=== PATIENT | female | born 1980 | race African-American/Black ===

== ENCOUNTER 2019-01-28 00:03 | Inpatient (IN) | payer BC, MEDICAID ==
[2019-01-28] VITALS (59 sets, daily range): BP systolic 93–162; BP diastolic 26–134
[~2019-01-28] VITALS: Ht 172.7 cm; Wt 71.3 kg
[2019-01-28] MEDS ORDERED: SODIUM CHLORIDE 0.9% 1,000 ML IV ONE (00:29)
[2019-01-28] MEDS ORDERED: ONDANSETRON HCL 4MG/2ML INJ IV STA (00:29)
[2019-01-28] MEDS ORDERED: MORPHINE SULFATE 4 MG/ML CPJ (NOT FOR IM USE) IV STA (00:29)
[2019-01-28] MEDS ORDERED: ETOMIDATE 2MG/ML 10ML VIAL IV ONE (01:00)
[2019-01-28] MEDS ORDERED: SUCCINYLCHOLINE CHLORIDE 200MG/10ML IV ONE ×2 (01:00→04:30)
[2019-01-28 01:15] LABS: CHLORIDE 105 mEq/L (98-107)
[2019-01-28 01:19] LABS: HEMATOCRIT. 36.5 % (36.0-48.0); HEMOGLOBIN. 11.8 g/dL (12.0-16.0); MEAN CORPUSCULAR HEMOGLOBIN 29.5 pg (28.0-32.0); MEAN CORPUSCULAR VOLUME 90.9 fL (81.0-99.0); MEAN PLATELET VOLUME 7.8 fl (7.4-10.4); PLATELET 334 x1000/uL (130-400); RED BLOOD CELL COUNT 4.01 mill/uL (4.2-5.4); RED CELL DISTRIBUTION WIDTH 16.9 % (11.6-14.6)
[2019-01-28 01:20] LABS: ETHANOL BLOOD < 10 mg/dL
[2019-01-28 01:24] LABS: HCG SCREEN NEGATIVE
[2019-01-28] MEDS ORDERED: LORAZEPAM 2MG/ML CPJ IV ONE (02:30)
[2019-01-28] MEDS ORDERED: MIDAZOLAM HCL 2 MG/2 ML VIAL IV ONE ×2 (03:00→03:30)
[2019-01-28] MEDS ORDERED: PIPERACILLIN/TAZ 3.375G PREMIX 50 ML IV ONE (03:45)
[2019-01-28] MEDS ORDERED: PROPOFOL 10MG/ML 100ML 100 ML IV ONE ×2 (04:30→07:32)
[2019-01-28 04:44] LABS: PLATELET ESTIMATE NORMAL
[2019-01-28] MEDS ORDERED: ONDANSETRON HCL 4MG/2ML INJ ONE (05:10)
[2019-01-28] MEDS ORDERED: ONDANSETRON HCL 4MG/2ML INJ IV ONE (05:15)
[2019-01-28] MEDS ORDERED: ENOXAPARIN 80MG/0.8ML SYR SUBCUT ONE (06:15)
[2019-01-28] MEDS ORDERED: IOHEXOL-300 100 ML BOTTLE ONE (06:19)
[2019-01-28 06:41] LABS: BG BASE EXCESS -9.7 mmol/L (-2.0-2.0); BG CARBOXYHEMOGLOBIN 1.3 % (0.5-1.5); BG DEOXYHEMOGLOBIN 13.8 % (0.0-5.0); BG FRACTION INSPIRED OXYGEN 40; BG HCO3 ACT 16.1 mmol/L (22.0-26.0); BG METHEMOGLOBIN 0.1 % (0.0-1.5); BG OXYHEMOGLOBIN 84.8 % (94.0-97.0); BG PCO2 34.9 mmHg (35.0-45.0); BG PH 7.283 (7.350-7.450); BG PO2 57.1 mmHg (75.0-100.0); BG SAMPLE SITE RIGHT RADIAL; BG TIDAL VOLUME(mL) 400 mL; BG TOTAL HEMOGLOBIN 10.3 g/dL (12.0-18.0); BG VENT MODE VENT - A/C; BG VENT RATE 14 set
[2019-01-28] MEDS ORDERED: FENTANYL CITRATE/PF 50MCG/ML 2ML VIAL IV ONE (07:00)
[2019-01-28] MEDS ORDERED: SODIUM BICARBONATE 8.4% 1 MEQ/ML 50ML SYR IV NR (08:15)
[2019-01-28] MEDS ORDERED: FENTANYL CITRATE/PF 500 MCG in SODIUM CHLORIDE 0.9% 40 ML IV PRN (09:30)
[2019-01-28] MEDS: MIDAZOLAM HCL 100 MG in DEXT 5% WATER 80 ML IV PRN ×2 (10:42→19:01)
[2019-01-28] MEDS: IPRATROPIUM/ALBUTEROL 0.5-3(2.5)MG/3ML NEB HHN SCH ×3 (11:17→20:59)
[2019-01-28] MEDS: LANSOPRAZOLE 30MG DR CAPSULE NG SCH (12:49)
[2019-01-28] MEDS: METRONIDAZOLE 500 MG PREMIX 100 ML IV SCH ×2 (12:49→20:03)
[2019-01-28] MEDS: CEFEPIME 1,000 MG in DEXTROSE 5% WATER 50 ML IV SCH ×2 (12:49→22:26)
[2019-01-28] MEDS: ASPIRIN 81MG EC TABLET PO SCH (12:50)
[2019-01-28 13:11] LABS: D-DIMER 2.63 mg/L FEU (<0.50); INR 1.1; PARTIAL THROMBOPLASTIN TIME 32.7 sec (23.4-31.0); PROTHROMBIN TIME 11.2 sec (9.6-11.0)
[2019-01-28] MEDS: FENTANYL CITRATE/PF 1,000 MCG in SODIUM CHLORIDE 0.9% 80 ML IV PRN ×2 (13:16→22:19)
[2019-01-28] MEDS ORDERED: IOHEXOL-350 100 ML BOTTLE ONE (13:48)
[2019-01-28 13:50] LABS: VALPROIC ACID < 3.0 ug/mL (50-100)
[2019-01-28] MEDS: LEVETIRACETAM 500 MG in SODIUM CHLORIDE 0.9% 100 ML IV SCH ×2 (14:22→21:17)
[2019-01-28] MEDS ORDERED: ENOXAPARIN 30MG/0.3ML SYR SUBCUT SCH (14:45)
[2019-01-28 15:36] LABS: CLARITY URINE CLEAR (CLEAR); COLOR URINE YELLOW (YELLOW); KETONES URINE NEGATIVE (NEGATIVE); LEUKOCYTE ESTERASE URINE NEGATIVE (NEGATIVE); NITRITE URINE NEGATIVE (NEGATIVE); OCCULT BLOOD URINE 2+ (NEGATIVE); PH URINE 6.5 (4.5-8.0); PROTEIN URINE NEGATIVE (NEGATIVE); SPECIFIC GRAVITY URINE 1.029 (1.005-1.030)
[2019-01-28 15:50] LABS: *AMPHETAMINES SCREEN URINE NEGATIVE (NEGATIVE); *BARBITURATES SCREEN URINE NEGATIVE (NEGATIVE); *COCAINE SCREEN URINE NEGATIVE (NEGATIVE); METHADONE URINE SCREEN NEGATIVE (NEGATIVE)
[2019-01-28 15:51] LABS: CANNABINOID URINE SCREEN NEGATIVE (NEGATIVE); PHENCYCLIDINE URINE SCREEN NEGATIVE (NEGATIVE)
[2019-01-28] MEDS: ENOXAPARIN 40MG/0.4ML SYR SUBCUT SCH (15:59)
[2019-01-28] MEDS: DEXT 5%/0.45% NACL 1000ML 1,000 ML IV SCH (16:00)
[2019-01-28] MEDS: LORAZEPAM 2MG/ML CPJ IV PRN ×2 (16:00→20:02)
[2019-01-28 16:25] LABS: *BENZODIAZEPINES SCREEN URINE PRESUMTIVE POSITIVE (NEGATIVE); OPIATES URINE SCREEN PRESUMTIVE POSITIVE (NEGATIVE)
[2019-01-28] MEDS ORDERED: LEVE1000 MT (18:42)
[2019-01-28] MEDS ORDERED: MORP60TA32 PO (18:42)
[2019-01-28] MEDS ORDERED: LEVO25TA2 MT (18:42)
[2019-01-28] MEDS ORDERED: HYDR8TAB44 MT (18:42)
[2019-01-28] MEDS ORDERED: SILD20TA PO (18:42)
[2019-01-28] MEDS ORDERED: ONDA8TAB6 PO (18:42)
[2019-01-28] MEDS ORDERED: HYDR500C18 PO (18:42)
[2019-01-28] MEDS ORDERED: [UNRECOGNIZED DRUG - CODE] SQ (18:42)
[2019-01-28] MEDS ORDERED: DEFE360T PO (18:42)
[2019-01-28] MEDS ORDERED: FC MT (18:42)
[2019-01-28] MEDS ORDERED: HYDR16TA PO (18:42)
[2019-01-28] MEDS ORDERED: HYDR1VIA2 IJ (18:42)
[2019-01-28] MEDS ORDERED: FOLI-43 MT (18:42)
[2019-01-29] VITALS (82 sets, daily range): BP systolic 99–146; BP diastolic 55–104
[2019-01-29] MEDS: LORAZEPAM 2MG/ML CPJ IV PRN ×4 (00:03→21:24)
[2019-01-29] MEDS: IPRATROPIUM/ALBUTEROL 0.5-3(2.5)MG/3ML NEB HHN SCH ×4 (02:44→20:24)
[2019-01-29] MEDS: METRONIDAZOLE 500 MG PREMIX 100 ML IV SCH ×3 (04:00→20:44)
[2019-01-29] MEDS: DEXT 5%/0.45% NACL 1000ML 1,000 ML IV SCH ×2 (04:01→21:43)
[2019-01-29] MEDS: MIDAZOLAM HCL 100 MG in DEXT 5% WATER 80 ML IV PRN ×2 (05:36→19:01)
[2019-01-29 06:09] LABS: CREATINE KINASE MB FRACTION 10.7 ng/mL (0.5-3.6)
[2019-01-29 08:00] LABS: BG BASE EXCESS 0.2 mmol/L (-2.0-2.0); BG CARBOXYHEMOGLOBIN 0.8 % (0.5-1.5); BG DEOXYHEMOGLOBIN 0.6 % (0.0-5.0); BG FRACTION INSPIRED OXYGEN 65; BG HCO3 ACT 23.9 mmol/L (22.0-26.0); BG METHEMOGLOBIN 0.4 % (0.0-1.5); BG OXYGEN SATURATION 99.4 % (92.0-98.5); BG OXYHEMOGLOBIN 98.2 % (94.0-97.0); BG PCO2 35.7 mmHg (35.0-45.0); BG PH 7.444 (7.350-7.450); BG PO2 285.5 mmHg (75.0-100.0); BG SAMPLE SITE RIGHT RADIAL; BG TIDAL VOLUME(mL) 500 mL; BG VENT MODE VENT - A/C; BG VENT RATE 16 set
[2019-01-29] MEDS: FENTANYL CITRATE/PF 1,000 MCG in SODIUM CHLORIDE 0.9% 80 ML IV PRN ×2 (08:11→19:00)
[2019-01-29] MEDS: ASPIRIN 81MG EC TABLET PO SCH (08:16)
[2019-01-29] MEDS: LEVETIRACETAM 500 MG in SODIUM CHLORIDE 0.9% 100 ML IV SCH ×2 (08:17→20:44)
[2019-01-29] MEDS: LANSOPRAZOLE 30MG DR CAPSULE NG SCH (08:17)
[2019-01-29] MEDS ORDERED: PROPOFOL 10MG/ML 100ML 100 ML IV PRN (08:45)
[2019-01-29 08:54] LABS: HEMATOCRIT. 33.8 % (36.0-48.0); HEMOGLOBIN. 11.1 g/dL (12.0-16.0); MEAN CORPUSCULAR HEMOGLOBIN 29.5 pg (28.0-32.0); MEAN CORPUSCULAR VOLUME 89.4 fL (81.0-99.0); MEAN PLATELET VOLUME 8.9 fl (7.4-10.4); PLATELET 403 x1000/uL (130-400); RED BLOOD CELL COUNT 3.78 mill/uL (4.2-5.4); RED CELL DISTRIBUTION WIDTH 16.2 % (11.6-14.6)
[2019-01-29 09:10] LABS: CHLORIDE 103 mEq/L (98-107)
[2019-01-29] MEDS: CEFEPIME 1,000 MG in DEXTROSE 5% WATER 50 ML IV SCH ×2 (11:59→23:24)
[2019-01-29 12:59] LABS: PLATELET ESTIMATE NORMAL
[2019-01-29] MEDS: ACETAMINOPHEN 325MG TABLET PO PRN ×2 (14:34→21:42)
[2019-01-29] MEDS: ENOXAPARIN 40MG/0.4ML SYR SUBCUT SCH (14:37)
[2019-01-29] MEDS: CARVEDILOL 3.125 MG TABLET PO SCH ×2 (15:29→21:13)
[2019-01-29 18:14] LABS: T4 FREE 0.86 ng/dL (0.76-1.46)
[2019-01-30] VITALS (96 sets, daily range): BP systolic 82–114; BP diastolic 42–69
[2019-01-30] MEDS: IPRATROPIUM/ALBUTEROL 0.5-3(2.5)MG/3ML NEB HHN SCH ×4 (01:08→20:31)
[2019-01-30] MEDS: METRONIDAZOLE 500 MG PREMIX 100 ML IV SCH ×3 (04:02→20:46)
[2019-01-30] MEDS: ACETAMINOPHEN 325MG TABLET PO PRN ×2 (04:03→10:06)
[2019-01-30 05:27] LABS: CHLORIDE 103 mEq/L (98-107)
[2019-01-30 05:36] LABS: CREATINE KINASE 197 IU/L (26-192)
[2019-01-30 05:38] LABS: CREATINE KINASE MB FRACTION 1.2 ng/mL (0.5-3.6)
[2019-01-30] MEDS: FENTANYL CITRATE/PF 1,000 MCG in SODIUM CHLORIDE 0.9% 80 ML IV PRN ×2 (06:18→14:36)
[2019-01-30 08:23] LABS: BG BASE EXCESS 1.5 mmol/L (-2.0-2.0); BG FRACTION INSPIRED OXYGEN 45; BG HCO3 ACT 25.8 mmol/L (22.0-26.0); BG METHEMOGLOBIN 0.2 % (0.0-1.5); BG OXYHEMOGLOBIN 96.8 % (94.0-97.0); BG PCO2 39.4 mmHg (35.0-45.0); BG PH 7.434 (7.350-7.450); BG PO2 110.1 mmHg (75.0-100.0); BG SAMPLE SITE RIGHT RADIAL; BG TIDAL VOLUME(mL) 500 mL; BG TOTAL HEMOGLOBIN 10.3 g/dL (12.0-18.0); BG VENT MODE VENT - A/C; BG VENT RATE 16 set
[2019-01-30] MEDS: LEVETIRACETAM 500 MG in SODIUM CHLORIDE 0.9% 100 ML IV SCH ×2 (08:42→20:47)
[2019-01-30] MEDS: ASPIRIN 81MG EC TABLET PO SCH (08:42)
[2019-01-30] MEDS: LANSOPRAZOLE 30MG DR CAPSULE NG SCH (08:42)
[2019-01-30] MEDS: CARVEDILOL 3.125 MG TABLET PO SCH ×2 (09:00→21:00)
[2019-01-30 09:33] LABS: BASOPHILS % 0.4 % (0.0-2.0); EOSINOPHILS % 6.7 % (0.0-5.0); HEMATOCRIT. 29.3 % (36.0-48.0); HEMOGLOBIN. 9.5 g/dL (12.0-16.0); MEAN CORPUSCULAR VOLUME 89.6 fL (81.0-99.0); MEAN PLATELET VOLUME 8.9 fl (7.4-10.4); MONOCYTES % 8.5 % (2.0-8.0); NEUTROPHILS % 71.4 % (40.0-76.0); PLATELET 401 x1000/uL (130-400); RED BLOOD CELL COUNT 3.26 mill/uL (4.2-5.4); RED CELL DISTRIBUTION WIDTH 15.9 % (11.6-14.6)
[2019-01-30 09:39] LABS: CHLORIDE 103 mEq/L (98-107)
[2019-01-30] MEDS: CEFEPIME 1,000 MG in DEXTROSE 5% WATER 50 ML IV SCH ×2 (10:06→23:33)
[2019-01-30] MEDS: LORAZEPAM 2MG/ML CPJ IV PRN (15:23)
[2019-01-30] MEDS: ENOXAPARIN 40MG/0.4ML SYR SUBCUT SCH (15:23)
[2019-01-30] MEDS: DEXT 5%/0.45% NACL 1000ML 1,000 ML IV SCH (17:48)
[2019-01-30] MEDS: MIDAZOLAM HCL 100 MG in DEXT 5% WATER 80 ML IV PRN (17:49)
[2019-01-30 21:06] LABS: CREATINE KINASE MB FRACTION 1.1 ng/mL (0.5-3.6)
[2019-01-30] MEDS ORDERED: NOREPINEPHRINE 4MG/250ML PMX 250 ML IV PRN (22:00)
[2019-01-30] MEDS ORDERED: SODIUM CHLORIDE 0.45% 250 ML IV NR (22:00)
[2019-01-30] MEDS: NOREPINEPHRINE 4MG in DEXT 5% WATER 250ML IV PRN (23:25)
[2019-01-31] VITALS (92 sets, daily range): BP systolic 89–122; BP diastolic 43–74
[2019-01-31] MEDS: FENTANYL CITRATE/PF 1,000 MCG in SODIUM CHLORIDE 0.9% 80 ML IV PRN ×3 (01:05→20:47)
[2019-01-31] MEDS: DEXT 5%/0.45% NACL 1000ML 1,000 ML IV SCH ×2 (01:06→20:49)
[2019-01-31] MEDS: LORAZEPAM 2MG/ML CPJ IV PRN ×2 (01:31→23:54)
[2019-01-31] MEDS: IPRATROPIUM/ALBUTEROL 0.5-3(2.5)MG/3ML NEB HHN SCH ×4 (02:12→19:59)
[2019-01-31] MEDS: METRONIDAZOLE 500 MG PREMIX 100 ML IV SCH ×3 (03:48→20:47)
[2019-01-31 05:23] LABS: BASOPHILS % 0.3 % (0.0-2.0); EOSINOPHILS % 9.9 % (0.0-5.0); HEMATOCRIT. 26.3 % (36.0-48.0); HEMOGLOBIN. 8.9 g/dL (12.0-16.0); LYMPHOCYTES % 9.6 % (20.0-50.0); MEAN CORPUSCULAR VOLUME 89.3 fL (81.0-99.0); MEAN PLATELET VOLUME 8.8 fl (7.4-10.4); MONOCYTES % 7.2 % (2.0-8.0); PLATELET 419 x1000/uL (130-400); RED BLOOD CELL COUNT 2.95 mill/uL (4.2-5.4); RED CELL DISTRIBUTION WIDTH 16.2 % (11.6-14.6)
[2019-01-31 05:25] LABS: CHLORIDE 107 mEq/L (98-107)
[2019-01-31 05:35] LABS: CREATINE KINASE 142 IU/L (26-192)
[2019-01-31 07:56] LABS: BG BASE EXCESS 0.5 mmol/L (-2.0-2.0); BG CARBOXYHEMOGLOBIN 0.7 % (0.5-1.5); BG DEOXYHEMOGLOBIN 3.3 % (0.0-5.0); BG FRACTION INSPIRED OXYGEN 60; BG HCO3 ACT 24.3 mmol/L (22.0-26.0); BG METHEMOGLOBIN 0.3 % (0.0-1.5); BG OXYGEN SATURATION 96.7 % (92.0-98.5); BG OXYHEMOGLOBIN 95.7 % (94.0-97.0); BG PCO2 36.5 mmHg (35.0-45.0); BG PH 7.442 (7.350-7.450); BG PO2 86.8 mmHg (75.0-100.0); BG SAMPLE SITE LEFT RADIAL; BG TIDAL VOLUME(mL) 500 mL; BG VENT MODE VENT - A/C; BG VENT RATE 16 set
[2019-01-31] MEDS: LANSOPRAZOLE 30MG DR CAPSULE NG SCH (08:36)
[2019-01-31] MEDS: CARVEDILOL 3.125 MG TABLET PO SCH ×2 (08:36→21:00)
[2019-01-31] MEDS: ASPIRIN 81MG EC TABLET PO SCH (08:36)
[2019-01-31] MEDS: LEVETIRACETAM 500 MG in SODIUM CHLORIDE 0.9% 100 ML IV SCH ×2 (08:36→20:47)
[2019-01-31] MEDS: ONDANSETRON HCL 4MG/2ML INJ IV PRN (10:53)
[2019-01-31] MEDS: CEFEPIME 1,000 MG in DEXTROSE 5% WATER 50 ML IV SCH ×2 (12:20→22:27)
[2019-01-31] MEDS: SODIUM CHLORIDE 0.9% 500 ML IV SCH ×3 (13:15→20:30)
[2019-01-31] MEDS: ENOXAPARIN 40MG/0.4ML SYR SUBCUT SCH (14:40)
[2019-01-31] MEDS: MIDAZOLAM HCL 100 MG in DEXT 5% WATER 80 ML IV PRN (14:40)
[2019-01-31] MEDS: APIXABAN 2.5 MG TABLET PO SCH (18:22)
[2019-01-31] MEDS: NOREPINEPHRINE 4MG in DEXT 5% WATER 250ML IV PRN (23:11)
[2019-02-01] VITALS (87 sets, daily range): BP systolic 92–136; BP diastolic 34–80
[2019-02-01] MEDS: IPRATROPIUM/ALBUTEROL 0.5-3(2.5)MG/3ML NEB HHN SCH ×4 (01:24→20:14)
[2019-02-01] MEDS: SODIUM CHLORIDE 0.9% 500 ML IV SCH (01:30)
[2019-02-01] MEDS: METRONIDAZOLE 500 MG PREMIX 100 ML IV SCH ×3 (03:16→20:10)
[2019-02-01] MEDS ORDERED: LORAZEPAM 2MG/ML CPJ IM PRN (07:30)
[2019-02-01] MEDS: ONDANSETRON HCL 4MG/2ML INJ IV PRN (07:57)
[2019-02-01] MEDS: LANSOPRAZOLE 30MG DR CAPSULE NG SCH (07:58)
[2019-02-01] MEDS: APIXABAN 2.5 MG TABLET PO SCH (08:53)
[2019-02-01] MEDS: ASPIRIN 81MG EC TABLET PO SCH (08:53)
[2019-02-01] MEDS: QUETIAPINE FUMARATE 25MG TABLET PO SCH ×2 (08:53→20:11)
[2019-02-01] MEDS: CARVEDILOL 3.125 MG TABLET PO SCH ×2 (08:54→20:11)
[2019-02-01] MEDS: LEVETIRACETAM 500 MG in SODIUM CHLORIDE 0.9% 100 ML IV SCH ×2 (08:54→21:01)
[2019-02-01 09:05] LABS: BG BASE EXCESS 1.7 mmol/L (-2.0-2.0); BG DEOXYHEMOGLOBIN 3.7 % (0.0-5.0); BG FRACTION INSPIRED OXYGEN 60; BG HCO3 ACT 25.8 mmol/L (22.0-26.0); BG METHEMOGLOBIN 0.3 % (0.0-1.5); BG OXYGEN SATURATION 96.3 % (92.0-98.5); BG PCO2 38.4 mmHg (35.0-45.0); BG PH 7.445 (7.350-7.450); BG PO2 84.4 mmHg (75.0-100.0); BG SAMPLE SITE LEFT RADIAL; BG TIDAL VOLUME(mL) 500 mL; BG TOTAL HEMOGLOBIN 9.1 g/dL (12.0-18.0); BG VENT MODE VENT - A/C; BG VENT RATE 16 set
[2019-02-01 09:38] LABS: CHLORIDE 108 mEq/L (98-107)
[2019-02-01 09:44] LABS: PHOSPHORUS 2.6 mg/dL (2.5-4.9)
[2019-02-01] MEDS: CEFEPIME 1,000 MG in DEXTROSE 5% WATER 50 ML IV SCH ×2 (10:11→22:11)
[2019-02-01] MEDS: LORAZEPAM 2MG/ML CPJ IV PRN ×3 (12:08→20:33)
[2019-02-01] MEDS: METOCLOPRAMIDE HCL 10MG/2ML VIAL IV SCH ×3 (12:08→23:13)
[2019-02-01] MEDS: FENTANYL CITRATE/PF 1,000 MCG in SODIUM CHLORIDE 0.9% 80 ML IV PRN (12:14)
[2019-02-01] MEDS ORDERED: POTASSIUM CHLORIDE INJ 40 MEQ in DEXT 5% WATER 250 ML IV SCH (13:00)
[2019-02-01 13:10] LABS: HGB A 75.4 % (96.4-98.8); HGB A2 2.8 % (1.8-3.2); HGB S 21.8 % (0.0); HGB SOLUBILITY Positive (Negative)
[2019-02-01 15:42] LABS: BASOPHILS % 0.8 % (0.0-2.0); EOSINOPHILS % 6.3 % (0.0-5.0); HEMATOCRIT. 26.1 % (36.0-48.0); HEMOGLOBIN. 8.5 g/dL (12.0-16.0); MEAN CORPUSCULAR HEMOGLOBIN 29.3 pg (28.0-32.0); MEAN CORPUSCULAR VOLUME 90.3 fL (81.0-99.0); MEAN PLATELET VOLUME 8.5 fl (7.4-10.4); MONOCYTES % 7.2 % (2.0-8.0); NEUTROPHILS % 75.7 % (40.0-76.0); PLATELET 591 x1000/uL (130-400); RED BLOOD CELL COUNT 2.89 mill/uL (4.2-5.4); RED CELL DISTRIBUTION WIDTH 16.4 % (11.6-14.6)
[2019-02-01] MEDS: DEXT 5%/0.45% NACL 1000ML 1,000 ML IV SCH (17:35)
[2019-02-01] MEDS ORDERED: ENOXAPARIN 60MG/0.6ML SYR SUBCUT SCH (21:00)
[2019-02-02] VITALS (90 sets, daily range): BP systolic 90–127; BP diastolic 47–79
[2019-02-02] MEDS: LORAZEPAM 2MG/ML CPJ IV PRN ×3 (00:38→14:32)
[2019-02-02] MEDS: IPRATROPIUM/ALBUTEROL 0.5-3(2.5)MG/3ML NEB HHN SCH ×3 (02:12→19:56)
[2019-02-02] MEDS: FENTANYL CITRATE/PF 1,000 MCG in SODIUM CHLORIDE 0.9% 80 ML IV PRN ×2 (03:44→20:52)
[2019-02-02] MEDS: METRONIDAZOLE 500 MG PREMIX 100 ML IV SCH ×3 (03:45→20:21)
[2019-02-02] MEDS: METOCLOPRAMIDE HCL 10MG/2ML VIAL IV SCH ×4 (05:24→23:33)
[2019-02-02 05:59] LABS: BASOPHILS % 1.2 % (0.0-2.0); EOSINOPHILS % 8.9 % (0.0-5.0); HEMOGLOBIN. 7.1 g/dL (12.0-16.0); LYMPHOCYTES % 12.8 % (20.0-50.0); MEAN CORPUSCULAR HEMOGLOBIN 30.2 pg (28.0-32.0); MEAN CORPUSCULAR VOLUME 89.4 fL (81.0-99.0); MEAN PLATELET VOLUME 8.6 fl (7.4-10.4); NEUTROPHILS % 69.1 % (40.0-76.0); PLATELET 609 x1000/uL (130-400); RED BLOOD CELL COUNT 2.35 mill/uL (4.2-5.4); RED CELL DISTRIBUTION WIDTH 16.1 % (11.6-14.6)
[2019-02-02 06:06] LABS: CHLORIDE 109 mEq/L (98-107)
[2019-02-02 07:17] LABS: BG BASE EXCESS -0.3 mmol/L (-2.0-2.0); BG CARBOXYHEMOGLOBIN 0.4 % (0.5-1.5); BG DEOXYHEMOGLOBIN 3.2 % (0.0-5.0); BG FRACTION INSPIRED OXYGEN 40; BG HCO3 ACT 23.8 mmol/L (22.0-26.0); BG METHEMOGLOBIN 0.1 % (0.0-1.5); BG OXYGEN SATURATION 96.8 % (92.0-98.5); BG OXYHEMOGLOBIN 96.3 % (94.0-97.0); BG PCO2 36.2 mmHg (35.0-45.0); BG PH 7.435 (7.350-7.450); BG PO2 96.9 mmHg (75.0-100.0); BG SAMPLE SITE RIGHT RADIAL; BG TIDAL VOLUME(mL) 500 mL; BG VENT MODE VENT - A/C; BG VENT RATE 16 set
[2019-02-02] MEDS: CARVEDILOL 3.125 MG TABLET PO SCH ×2 (09:00→20:49)
[2019-02-02] MEDS: DEXT 5%/0.45% NACL 1000ML 1,000 ML IV SCH (09:02)
[2019-02-02] MEDS: LEVETIRACETAM 500 MG in SODIUM CHLORIDE 0.9% 100 ML IV SCH ×2 (09:03→20:21)
[2019-02-02] MEDS: QUETIAPINE FUMARATE 25MG TABLET PO SCH ×2 (09:04→20:49)
[2019-02-02] MEDS: FAMOTIDINE 20MG/2ML VIAL IV SCH ×2 (09:04→20:49)
[2019-02-02] MEDS: ASPIRIN 81MG EC TABLET PO SCH (09:04)
[2019-02-02] MEDS: ONDANSETRON HCL 4MG/2ML INJ IV PRN (09:44)
[2019-02-02] MEDS ORDERED: POTASSIUM CHLORIDE INJ 40 MEQ in DEXT 5% WATER 250 ML IV SCH (10:00)
[2019-02-02] MEDS: CEFEPIME 1,000 MG in DEXTROSE 5% WATER 50 ML IV SCH ×2 (11:38→23:32)
[2019-02-02] MEDS: IPRATROPIUM/ALBUTEROL 0.5-3(2.5)MG/3ML NEB HHN PRN (12:25)
[2019-02-02] MEDS ORDERED: POTASSIUM CHLORIDE 20MEQ/PACKET NG NR (13:45)
[2019-02-02] MEDS: PROPOFOL 10MG/ML 100ML 100 ML IV PRN ×3 (16:02→23:28)
[2019-02-02] MEDS ORDERED: FENTANYL CITRATE/PF 500 MCG in SODIUM CHLORIDE 0.9% 40 ML IV PRN (19:45)
[2019-02-02 20:27] LABS: HEMATOCRIT 23.9 % (36.0-48.0); HEMOGLOBIN 8.2 g/dL (12.0-16.0)
[2019-02-03] VITALS (89 sets, daily range): BP systolic 82–124; BP diastolic 42–94
[2019-02-03] MEDS: METRONIDAZOLE 500 MG PREMIX 100 ML IV SCH ×3 (03:28→19:59)
[2019-02-03] MEDS: PROPOFOL 10MG/ML 100ML 100 ML IV PRN ×5 (03:59→20:27)
[2019-02-03] MEDS: IPRATROPIUM/ALBUTEROL 0.5-3(2.5)MG/3ML NEB HHN SCH ×5 (04:23→22:20)
[2019-02-03 05:17] LABS: HEMATOCRIT. 24.7 % (36.0-48.0); HEMOGLOBIN. 8.3 g/dL (12.0-16.0); MEAN CORPUSCULAR VOLUME 89.5 fL (81.0-99.0); MEAN PLATELET VOLUME 8.2 fl (7.4-10.4); PLATELET 628 x1000/uL (130-400); RED BLOOD CELL COUNT 2.77 mill/uL (4.2-5.4); RED CELL DISTRIBUTION WIDTH 16.4 % (11.6-14.6)
[2019-02-03 05:26] LABS: CHLORIDE 111 mEq/L (98-107)
[2019-02-03 05:35] LABS: PHOSPHORUS 3.6 mg/dL (2.5-4.9)
[2019-02-03] MEDS: METOCLOPRAMIDE HCL 10MG/2ML VIAL IV SCH ×4 (06:09→23:12)
[2019-02-03 07:10] LABS: BG BASE EXCESS -1.4 mmol/L (-2.0-2.0); BG CARBOXYHEMOGLOBIN 0.3 % (0.5-1.5); BG DEOXYHEMOGLOBIN 2.7 % (0.0-5.0); BG HCO3 ACT 23.3 mmol/L (22.0-26.0); BG METHEMOGLOBIN 1.2 % (0.0-1.5); BG OXYGEN SATURATION 97.3 % (92.0-98.5); BG OXYHEMOGLOBIN 95.8 % (94.0-97.0); BG PCO2 38.6 mmHg (35.0-45.0); BG PH 7.398 (7.350-7.450); BG PO2 113.1 mmHg (75.0-100.0); BG SAMPLE SITE RIGHT RADIAL; BG TIDAL VOLUME(mL) 500 mL; BG TOTAL HEMOGLOBIN 8.8 g/dL (12.0-18.0); BG VENT MODE VENT - A/C; BG VENT RATE 12 set
[2019-02-03 08:04] LABS: PLATELET ESTIMATE INCREASED
[2019-02-03] MEDS: CARVEDILOL 3.125 MG TABLET PO SCH ×2 (08:38→20:51)
[2019-02-03] MEDS: LEVETIRACETAM 500 MG in SODIUM CHLORIDE 0.9% 100 ML IV SCH (08:39)
[2019-02-03] MEDS: FAMOTIDINE 20MG/2ML VIAL IV SCH ×2 (08:39→20:51)
[2019-02-03] MEDS: QUETIAPINE FUMARATE 25MG TABLET PO SCH ×2 (08:39→20:52)
[2019-02-03] MEDS: ASPIRIN 81MG EC TABLET PO SCH (08:40)
[2019-02-03] MEDS: DEXT 5%/0.45% NACL 1000ML 1,000 ML IV SCH (08:40)
[2019-02-03] MEDS: CEFEPIME 1,000 MG in DEXTROSE 5% WATER 50 ML IV SCH ×2 (10:47→23:12)
[2019-02-03] MEDS: FENTANYL CITRATE/PF 1,000 MCG in SODIUM CHLORIDE 0.9% 80 ML IV PRN ×2 (10:48→22:04)
[2019-02-03] MEDS: NOREPINEPHRINE 4MG in DEXT 5% WATER 250ML IV PRN (11:54)
[2019-02-03] MEDS: IPRATROPIUM/ALBUTEROL 0.5-3(2.5)MG/3ML NEB HHN PRN (16:30)
[2019-02-03] MEDS: LEVETIRACETAM 1,000 MG in SODIUM CHLORIDE 0.9% 100 ML IV SCH (20:52)
[2019-02-04] VITALS (81 sets, daily range): BP systolic 93–135; BP diastolic 50–92
[2019-02-04] MEDS: PROPOFOL 10MG/ML 100ML 100 ML IV PRN ×3 (00:24→07:19)
[2019-02-04] MEDS: IPRATROPIUM/ALBUTEROL 0.5-3(2.5)MG/3ML NEB HHN SCH ×6 (00:36→20:29)
[2019-02-04] MEDS: METRONIDAZOLE 500 MG PREMIX 100 ML IV SCH ×3 (04:00→21:25)
[2019-02-04] MEDS: DEXT 5%/0.45% NACL 1000ML 1,000 ML IV SCH (05:03)
[2019-02-04] MEDS: METOCLOPRAMIDE HCL 10MG/2ML VIAL IV SCH ×2 (05:49→11:24)
[2019-02-04] MEDS: ASPIRIN 81MG EC TABLET PO SCH (08:06)
[2019-02-04] MEDS: FAMOTIDINE 20MG/2ML VIAL IV SCH ×2 (08:06→21:25)
[2019-02-04] MEDS: CARVEDILOL 3.125 MG TABLET PO SCH ×2 (08:06→21:00)
[2019-02-04] MEDS: QUETIAPINE FUMARATE 25MG TABLET PO SCH ×2 (08:06→21:00)
[2019-02-04] MEDS: LEVETIRACETAM 1,000 MG in SODIUM CHLORIDE 0.9% 100 ML IV SCH ×2 (08:06→22:20)
[2019-02-04 09:26] LABS: BG BASE EXCESS -1.8 mmol/L (-2.0-2.0); BG CARBOXYHEMOGLOBIN 0.3 % (0.5-1.5); BG DEOXYHEMOGLOBIN 3.1 % (0.0-5.0); BG FRACTION INSPIRED OXYGEN 40; BG HCO3 ACT 22.5 mmol/L (22.0-26.0); BG METHEMOGLOBIN 0.5 % (0.0-1.5); BG OXYGEN SATURATION 96.9 % (92.0-98.5); BG OXYHEMOGLOBIN 96.1 % (94.0-97.0); BG PCO2 36.1 mmHg (35.0-45.0); BG PH 7.412 (7.350-7.450); BG PO2 99.7 mmHg (75.0-100.0); BG PRESSURE SUPPORT 15; BG SAMPLE SITE LEFT RADIAL; BG TIDAL VOLUME(mL) 500 mL; BG TOTAL HEMOGLOBIN 9.5 g/dL (12.0-18.0); BG VENT MODE VENT - SIMV; BG VENT RATE 10 set
[2019-02-04] MEDS ORDERED: POTASSIUM CHLORIDE 20MEQ TABLET SR PO NR (09:46)
[2019-02-04] MEDS: FENTANYL CITRATE/PF 1,000 MCG in SODIUM CHLORIDE 0.9% 80 ML IV PRN (09:53)
[2019-02-04] MEDS: CEFEPIME 1,000 MG in DEXTROSE 5% WATER 50 ML IV SCH ×2 (09:59→22:25)
[2019-02-04 11:01] LABS: BG BASE EXCESS 1.7 mmol/L (-2.0-2.0); BG CARBOXYHEMOGLOBIN 0.1 % (0.5-1.5); BG DEOXYHEMOGLOBIN 3.4 % (0.0-5.0); BG FRACTION INSPIRED OXYGEN 40; BG HCO3 ACT 26.5 mmol/L (22.0-26.0); BG METHEMOGLOBIN 0.4 % (0.0-1.5); BG OXYGEN SATURATION 96.6 % (92.0-98.5); BG OXYHEMOGLOBIN 96.1 % (94.0-97.0); BG PCO2 42.5 mmHg (35.0-45.0); BG PH 7.412 (7.350-7.450); BG PO2 88.6 mmHg (75.0-100.0); BG PRESSURE SUPPORT 8; BG SAMPLE SITE RIGHT RADIAL; BG TOTAL HEMOGLOBIN 9.3 g/dL (12.0-18.0); BG VENT MODE VENT - CPAP
[2019-02-04] MEDS ORDERED: RACEPINEPHRINE 2.25% 0.5ML NEB VIAL ONE (11:54)
[2019-02-04] MEDS ORDERED: RACEPINEPHRINE 2.25% 0.5ML NEB VIAL HHN PRN (12:00)
[2019-02-04] MEDS: ONDANSETRON HCL 4MG/2ML INJ IV PRN (13:34)
[2019-02-04] MEDS: MORPHINE SULFATE 2 MG/ML CPJ (NOT FOR IM USE) IV PRN ×2 (13:34→19:27)
[2019-02-04 18:13] LABS: BASOPHILS % 0.8 % (0.0-2.0); EOSINOPHILS % 6.6 % (0.0-5.0); HEMATOCRIT. 29.4 % (36.0-48.0); HEMOGLOBIN. 9.7 g/dL (12.0-16.0); LYMPHOCYTES % 15.3 % (20.0-50.0); MEAN CORPUSCULAR HEMOGLOBIN 29.9 pg (28.0-32.0); MEAN CORPUSCULAR VOLUME 90.8 fL (81.0-99.0); MEAN PLATELET VOLUME 8.5 fl (7.4-10.4); MONOCYTES % 8.8 % (2.0-8.0); NEUTROPHILS % 68.5 % (40.0-76.0); PLATELET 946 x1000/uL (130-400); RED BLOOD CELL COUNT 3.24 mill/uL (4.2-5.4); RED CELL DISTRIBUTION WIDTH 16.3 % (11.6-14.6)
[2019-02-04 18:36] LABS: CHLORIDE 114 mEq/L (98-107)
[2019-02-05] VITALS (48 sets, daily range): BP systolic 99–154; BP diastolic 50–136
[2019-02-05] MEDS: IPRATROPIUM/ALBUTEROL 0.5-3(2.5)MG/3ML NEB HHN SCH ×4 (00:18→19:57)
[2019-02-05] MEDS: DEXT 5%/0.45% NACL 1000ML 1,000 ML IV SCH (01:16)
[2019-02-05] MEDS: MORPHINE SULFATE 2 MG/ML CPJ (NOT FOR IM USE) IV PRN ×2 (01:16→05:47)
[2019-02-05] MEDS: FAMOTIDINE 20MG/2ML VIAL IV SCH ×2 (08:57→21:05)
[2019-02-05] MEDS ORDERED: LEVETIRACETAM 500MG PREMIX 100 ML IV SCH (09:00)
[2019-02-05] MEDS ORDERED: LEVETIRACETAM 1000MG/100ML 100 ML IV SCH (09:00)
[2019-02-05] MEDS: QUETIAPINE FUMARATE 25MG TABLET PO SCH ×2 (09:00→21:05)
[2019-02-05] MEDS: ASPIRIN 81MG EC TABLET PO SCH (09:04)
[2019-02-05] MEDS: CARVEDILOL 3.125 MG TABLET PO SCH ×2 (09:04→21:30)
[2019-02-05 13:08] LABS: CHLORIDE 110 mEq/L (98-107)
[2019-02-05] MEDS ORDERED: ENOXAPARIN 40MG/0.4ML SYR SUBCUT NR (13:30)
[2019-02-05 15:35] LABS: BASOPHILS % 1.5 % (0.0-2.0); EOSINOPHILS % 8.6 % (0.0-5.0); HEMATOCRIT. 26.4 % (36.0-48.0); LYMPHOCYTES % 24.2 % (20.0-50.0); MEAN CORPUSCULAR HEMOGLOBIN 30.4 pg (28.0-32.0); MEAN CORPUSCULAR VOLUME 89.7 fL (81.0-99.0); MEAN PLATELET VOLUME 8.1 fl (7.4-10.4); MONOCYTES % 13.7 % (2.0-8.0); PLATELET 920 x1000/uL (130-400); RED BLOOD CELL COUNT 2.95 mill/uL (4.2-5.4); RED CELL DISTRIBUTION WIDTH 16.4 % (11.6-14.6)
[2019-02-05] MEDS: LEVETIRACETAM 1,000 MG in SODIUM CHLORIDE 0.9% 100 ML IV SCH (21:04)
[2019-02-06] VITALS (20 sets, daily range): BP systolic 103–133; BP diastolic 56–89
[2019-02-06] MEDS: IPRATROPIUM/ALBUTEROL 0.5-3(2.5)MG/3ML NEB HHN SCH ×4 (01:32→20:35)
[2019-02-06] MEDS: DEXT 5%/0.45% NACL 1000ML 1,000 ML IV SCH ×2 (04:09→18:26)
[2019-02-06 05:48] LABS: BASOPHILS % 0.5 % (0.0-2.0); EOSINOPHILS % 8.3 % (0.0-5.0); HEMOGLOBIN. 8.9 g/dL (12.0-16.0); LYMPHOCYTES % 15.2 % (20.0-50.0); MEAN CORPUSCULAR HEMOGLOBIN 29.8 pg (28.0-32.0); MEAN CORPUSCULAR VOLUME 90.2 fL (81.0-99.0); MEAN PLATELET VOLUME 8.2 fl (7.4-10.4); MONOCYTES % 6.7 % (2.0-8.0); NEUTROPHILS % 69.3 % (40.0-76.0); PLATELET 910 x1000/uL (130-400); RED CELL DISTRIBUTION WIDTH 16.7 % (11.6-14.6)
[2019-02-06 05:49] LABS: CHLORIDE 108 mEq/L (98-107)
[2019-02-06] MEDS: ASPIRIN 81MG EC TABLET PO SCH (08:36)
[2019-02-06] MEDS: FAMOTIDINE 20MG/2ML VIAL IV SCH ×2 (08:36→21:37)
[2019-02-06] MEDS: CARVEDILOL 3.125 MG TABLET PO SCH ×2 (08:36→21:09)
[2019-02-06] MEDS: LEVETIRACETAM 1,000 MG in SODIUM CHLORIDE 0.9% 100 ML IV SCH ×2 (08:36→21:37)
[2019-02-06] MEDS: QUETIAPINE FUMARATE 25MG TABLET PO SCH ×2 (08:36→21:09)
[2019-02-07] VITALS: BP 101/61
[2019-02-07] MEDS: IPRATROPIUM/ALBUTEROL 0.5-3(2.5)MG/3ML NEB HHN SCH ×3 (01:03→13:29)
[2019-02-07 04:00] VITALS: BP 122/57
[2019-02-07 07:02] LABS: HEMATOCRIT. 27.5 % (36.0-48.0); HEMOGLOBIN. 9.2 g/dL (12.0-16.0); MEAN CORPUSCULAR HEMOGLOBIN 30.3 pg (28.0-32.0); MEAN CORPUSCULAR VOLUME 90.7 fL (81.0-99.0); MEAN PLATELET VOLUME 8.2 fl (7.4-10.4); PLATELET 964 x1000/uL (130-400); RED BLOOD CELL COUNT 3.03 mill/uL (4.2-5.4); RED CELL DISTRIBUTION WIDTH 16.4 % (11.6-14.6)
[2019-02-07 07:09] LABS: CHLORIDE 108 mEq/L (98-107)
[2019-02-07 08:00] VITALS: BP 112/72
[2019-02-07] MEDS: CARVEDILOL 3.125 MG TABLET PO SCH (09:04)
[2019-02-07] MEDS: ASPIRIN 81MG EC TABLET PO SCH (09:04)
[2019-02-07] MEDS: QUETIAPINE FUMARATE 25MG TABLET PO SCH (09:04)
[2019-02-07] MEDS: LEVETIRACETAM 1,000 MG in SODIUM CHLORIDE 0.9% 100 ML IV SCH (09:05)
[2019-02-07] MEDS: FAMOTIDINE 20MG/2ML VIAL IV SCH (09:05)
[2019-02-07] MEDS ORDERED: POTASSIUM CHLORIDE 20MEQ/PACKET PO NR (11:30)
[2019-02-07 11:32] VITALS: BP 108/63
[2019-02-07 12:00] VITALS: BP 126/67
[2019-02-07] MEDS ORDERED: ENOXAPARIN 40MG/0.4ML SYR SUBCUT SCH ×2 (14:00→21:00)
[2019-02-07 16:00] VITALS: BP 108/63
[2019-02-07 20:19] LABS: PLATELET ESTIMATE MARKEDLY INCREASED
[2019-02-07] MEDS ORDERED: FAMOTIDINE 20MG TABLET PO SCH (21:00)
[2019-02-07] MEDS ORDERED: LEVETIRACETAM 500MG/5ML CUP PO SCH (21:00)
== END 2019-02-07 18:29 | DRG 870 ==
LOC: ER 00:03 → EDBEDREQ 05:12 → EDBEDREQTM 05:12 → CVICU 05:40 → EDBEDREQ 05:44 → EDBEDREQTM 05:44 → EDBEDREQSVC 05:44 → ENRESERV 07:42 → 6WST 02-06 10:00
PROVIDERS: ADMIT Internal Medicine; ATTEND Internal Medicine
PROC: 02HV33Z Insertion of Infusion Device into Superior Vena Cava, Percutaneous Approach (ICD-10-PCS; 2019-01-28)
PROC: B548ZZA Ultrasonography of Superior Vena Cava, Guidance (ICD-10-PCS; 2019-01-28)
PROC: B5181ZA Fluoroscopy of Superior Vena Cava using Low Osmolar Contrast, Guidance (ICD-10-PCS; 2019-01-28)
PROC: 4A00X4Z Measurement of Central Nervous Electrical Activity, External Approach (ICD-10-PCS; 2019-01-30)
PROC: 5A1955Z Respiratory Ventilation, Greater than 96 Consecutive Hours (ICD-10-PCS; principal; 2019-02-02)
PROC: 30233N1 Transfusion of Nonautologous Red Blood Cells into Peripheral Vein, Percutaneous Approach (ICD-10-PCS; 2019-02-02)
PROC: 0BH17EZ Insertion of Endotracheal Airway into Trachea, Via Natural or Artificial Opening (ICD-10-PCS; 2019-02-02)
DX: A41.9 Sepsis, unspecified organism (principal); J18.1 Lobar pneumonia, unspecified organism; I50.23 Acute on chronic systolic (congestive) heart failure; J96.01 Acute respiratory failure with hypoxia; I21.4 Non-ST elevation (NSTEMI) myocardial infarction; G93.41 Metabolic encephalopathy; I63.89 Other cerebral infarction; M62.82 Rhabdomyolysis; I42.9 Cardiomyopathy, unspecified; E87.2 Acidosis; G81.94 Hemiplegia, unspecified affecting left nondominant side; I27.20 Pulmonary hypertension, unspecified; D57.1 Sickle-cell disease without crisis; E87.6 Hypokalemia; I11.0 Hypertensive heart disease with heart failure; I25.2 Old myocardial infarction; Z79.01 Long term (current) use of anticoagulants; Z83.2 Family history of diseases of the blood and blood-forming organs and certain disorders involving the immune mechanism; Z86.711 Personal history of pulmonary embolism; Z90.49 Acquired absence of other specified parts of digestive tract; Z99.81 Dependence on supplemental oxygen; Z88.1 Allergy status to other antibiotic agents; Z98.891 History of uterine scar from previous surgery; E80.6 Other disorders of bilirubin metabolism; G40.901 Epilepsy, unspecified, not intractable, with status epilepticus
CPT/HCPCS: 36415; 36573; 36600; 70544; 70553; 71045; 71260; 71275; 74018; 80048; 80061; 80165; 80185; 80305; 80320; 82270; 82375; 82542; 82550; 82553; 82805; 83021; 83540; 83550; 83605; 83735; 83880; 84100; 84439; 84443; 84478; 84481; 84484; 84703; 85014; 85018; 85044; 85379; 85660; 86850; 86900; 86920; 87070; 92523; 92610; 93005; 93306; 93923; 93970; 94002; 94003; 94640; 96361; 96365; 96375; 97110; 97112; 97116; 97163; 97166; 97530; 99291; C1725; J0330; J0692; J1650; J1953; J2060; J2250; J2270; J2405; J2704; J2765; J3010; J3480; J3490; J7030; J7040; J7050; J7060; J7620; P9016; Q9967; A4315; G0480

== ENCOUNTER 2019-02-07 18:30 | Inpatient (IN) | payer BC, MEDICAID ==
[~2019-02-07] VITALS: Ht 172.7 cm; Wt 70.5 kg
[~2019-02-07 18:30] MED LIST: DEFE360T PO; FC MT; FOLI-43 MT; HYDR16TA PO; HYDR1VIA2 IJ; HYDR500C18 PO; HYDR8TAB44 MT; LEVE1000 MT; LEVO25TA2 MT; MORP60TA32 PO; ONDA8TAB6 PO; SILD20TA PO; [UNRECOGNIZED DRUG - CODE] SQ
[2019-02-07 18:45] VITALS: BP 122/76
[2019-02-07 20:00] VITALS: BP 104/68
[2019-02-07] MEDS ORDERED: ONDANSETRON HCL 4MG TABLET PO PRN (20:15)
[2019-02-07] MEDS ORDERED: RACEPINEPHRINE 2.25% 0.5ML NEB VIAL HHN PRN (20:15)
[2019-02-07] MEDS ORDERED: FAMOTIDINE 20MG TABLET PO SCH (21:00)
[2019-02-07] MEDS: DEXT 5%/0.45% NACL 1000ML 1,000 ML IV SCH (21:21)
[2019-02-07] MEDS: LEVETIRACETAM 500MG TABLET PO SCH (21:21)
[2019-02-07] MEDS: QUETIAPINE FUMARATE 25MG TABLET PO SCH (21:22)
[2019-02-07] MEDS: IPRATROPIUM/ALBUTEROL 0.5-3(2.5)MG/3ML NEB HHN PRN (21:26)
[2019-02-07] MEDS: ENOXAPARIN 40MG/0.4ML SYR SUBCUT SCH (21:31)
[2019-02-07] MEDS: CARVEDILOL 3.125 MG TABLET PO SCH (21:32)
[2019-02-08] MEDS: IPRATROPIUM/ALBUTEROL 0.5-3(2.5)MG/3ML NEB HHN SCH ×4 (01:01→21:10)
[2019-02-08 07:14] LABS: CHLORIDE 109 mEq/L (98-107)
[2019-02-08 07:22] LABS: TOTAL IRON BINDING CAPACITY 255 ug/dL (250-450)
[2019-02-08 07:47] LABS: VITAMIN B12 SERUM 645 pg/mL (211-911)
[2019-02-08 08:00] VITALS: BP 108/76
[2019-02-08] MEDS: CARVEDILOL 3.125 MG TABLET PO SCH ×2 (09:00→21:40)
[2019-02-08] MEDS: ASPIRIN 81MG EC TABLET PO SCH (09:20)
[2019-02-08] MEDS: LEVETIRACETAM 500MG TABLET PO SCH ×2 (09:20→21:40)
[2019-02-08] MEDS: FOLIC ACID 1MG TABLET PO SCH (09:21)
[2019-02-08] MEDS: TRAMADOL 50MG TABLET PO PRN (09:21)
[2019-02-08] MEDS: ENOXAPARIN 40MG/0.4ML SYR SUBCUT SCH ×2 (09:24→21:42)
[2019-02-08] MEDS ORDERED: MORPHINE SULFATE 2 MG/ML CPJ (NOT FOR IM USE) IV NR (13:15)
[2019-02-08] MEDS: ACETAMINOPHEN 325MG TABLET PO PRN (15:39)
[2019-02-08] MEDS: FAMOTIDINE 20MG TABLET PO SCH (17:58)
[2019-02-08] MEDS: DEXT 5%/0.45% NACL 1000ML 1,000 ML IV SCH (17:59)
[2019-02-08 20:00] VITALS: BP 114/72
[2019-02-08] MEDS: QUETIAPINE FUMARATE 25MG TABLET PO SCH (21:41)
[2019-02-09] MEDS: IPRATROPIUM/ALBUTEROL 0.5-3(2.5)MG/3ML NEB HHN SCH ×4 (00:53→20:20)
[2019-02-09 06:21] LABS: BASOPHILS % 1.2 % (0.0-2.0); EOSINOPHILS % 14.1 % (0.0-5.0); HEMATOCRIT. 25.9 % (36.0-48.0); HEMOGLOBIN. 8.6 g/dL (12.0-16.0); LYMPHOCYTES % 39.8 % (20.0-50.0); MEAN CORPUSCULAR HEMOGLOBIN 29.8 pg (28.0-32.0); MEAN CORPUSCULAR VOLUME 89.6 fL (81.0-99.0); MEAN PLATELET VOLUME 8.5 fl (7.4-10.4); MONOCYTES % 10.2 % (2.0-8.0); NEUTROPHILS % 34.7 % (40.0-76.0); PLATELET 958 x1000/uL (130-400); RED BLOOD CELL COUNT 2.89 mill/uL (4.2-5.4); RED CELL DISTRIBUTION WIDTH 16.2 % (11.6-14.6)
[2019-02-09 08:00] VITALS: BP 104/50
[2019-02-09] MEDS: TRAMADOL 50MG TABLET PO PRN ×2 (08:11→11:52)
[2019-02-09] MEDS: FOLIC ACID 1MG TABLET PO SCH (08:12)
[2019-02-09] MEDS: ASPIRIN 81MG EC TABLET PO SCH (08:12)
[2019-02-09] MEDS: CARVEDILOL 3.125 MG TABLET PO SCH ×2 (08:13→21:00)
[2019-02-09] MEDS: LEVETIRACETAM 500MG TABLET PO SCH ×2 (08:13→20:19)
[2019-02-09] MEDS: ENOXAPARIN 40MG/0.4ML SYR SUBCUT SCH ×2 (08:13→20:19)
[2019-02-09] MEDS: IPRATROPIUM/ALBUTEROL 0.5-3(2.5)MG/3ML NEB HHN PRN ×2 (10:46→17:52)
[2019-02-09] MEDS: HYDROCODONE/ACETAMINOPHEN 5/325MG TABLET PO PRN ×2 (11:51→20:20)
[2019-02-09] MEDS: FAMOTIDINE 20MG TABLET PO SCH ×2 (11:58→17:01)
[2019-02-09] MEDS: FUROSEMIDE 40MG TABLET PO SCH (11:58)
[2019-02-09] MEDS: POTASSIUM CHLORIDE 10MEQ TABLET SR PO SCH (11:58)
[2019-02-09] MEDS: DEXT 5%/0.45% NACL 1000ML 1,000 ML IV SCH ×2 (13:03→22:20)
[2019-02-09 20:00] VITALS: BP 110/48
[2019-02-09] MEDS: QUETIAPINE FUMARATE 25MG TABLET PO SCH (21:10)
[2019-02-10] MEDS: IPRATROPIUM/ALBUTEROL 0.5-3(2.5)MG/3ML NEB HHN SCH ×4 (03:00→21:25)
[2019-02-10] MEDS: HYDROCODONE/ACETAMINOPHEN 5/325MG TABLET PO PRN (03:52)
[2019-02-10 06:00] LABS: HEMATOCRIT. 24.1 % (36.0-48.0); HEMOGLOBIN. 8.2 g/dL (12.0-16.0); MEAN CORPUSCULAR HEMOGLOBIN 30.6 pg (28.0-32.0); MEAN CORPUSCULAR VOLUME 89.8 fL (81.0-99.0); MEAN PLATELET VOLUME 8.9 fl (7.4-10.4); PLATELET 585 x1000/uL (130-400); RED BLOOD CELL COUNT 2.68 mill/uL (4.2-5.4); RED CELL DISTRIBUTION WIDTH 16.3 % (11.6-14.6)
[2019-02-10 06:12] LABS: CHLORIDE 104 mEq/L (98-107)
[2019-02-10 07:47] VITALS: BP 82/39
[2019-02-10] MEDS: CARVEDILOL 3.125 MG TABLET PO SCH ×2 (09:00→20:34)
[2019-02-10] MEDS: ENOXAPARIN 40MG/0.4ML SYR SUBCUT SCH ×2 (09:04→20:34)
[2019-02-10] MEDS: POTASSIUM CHLORIDE 10MEQ TABLET SR PO SCH (09:05)
[2019-02-10] MEDS: FOLIC ACID 1MG TABLET PO SCH (09:05)
[2019-02-10] MEDS: FAMOTIDINE 20MG TABLET PO SCH ×2 (09:05→16:15)
[2019-02-10] MEDS: LEVETIRACETAM 500MG TABLET PO SCH ×2 (09:05→20:33)
[2019-02-10] MEDS: ASPIRIN 81MG EC TABLET PO SCH (09:05)
[2019-02-10] MEDS: FUROSEMIDE 40MG TABLET PO SCH (09:05)
[2019-02-10] MEDS: TRAMADOL 50MG TABLET PO PRN (09:13)
[2019-02-10] MEDS: DEXT 5%/0.45% NACL 1000ML 1,000 ML IV SCH ×2 (09:14→20:01)
[2019-02-10 09:26] LABS: PLATELET ESTIMATE INCREASED
[2019-02-10 20:00] VITALS: BP 108/58
[2019-02-10] MEDS: DIPHENHYDRAMINE 50MG/ML VIAL IV PRN (20:01)
[2019-02-10 20:03] LABS: CLARITY URINE CLEAR (CLEAR); COLOR URINE YELLOW (YELLOW); KETONES URINE NEGATIVE (NEGATIVE); LEUKOCYTE ESTERASE URINE NEGATIVE (NEGATIVE); NITRITE URINE NEGATIVE (NEGATIVE); OCCULT BLOOD URINE NEGATIVE (NEGATIVE); PH URINE 5.5 (4.5-8.0); PROTEIN URINE NEGATIVE (NEGATIVE); SPECIFIC GRAVITY URINE 1.013 (1.005-1.030); UROBILINOGEN URINE 0.2 E.U./dL (0.2-1.0)
[2019-02-10] MEDS: QUETIAPINE FUMARATE 25MG TABLET PO SCH (20:33)
[2019-02-11] MEDS: IPRATROPIUM/ALBUTEROL 0.5-3(2.5)MG/3ML NEB HHN SCH ×4 (00:44→19:54)
[2019-02-11] MEDS: DIPHENHYDRAMINE 50MG/ML VIAL IV PRN ×3 (02:37→20:02)
[2019-02-11] MEDS: DEXT 5%/0.45% NACL 1000ML 1,000 ML IV SCH (05:00)
[2019-02-11] MEDS: PIPERACILLIN/TAZOBACTAM 3.375 G in DEXT 5% WATER 100 ML IV SCH ×3 (05:02→20:49)
[2019-02-11] MEDS: CLINDAMYCIN 300 MG in DEXTROSE 5% WATER 50 ML IV SCH ×3 (05:55→22:20)
[2019-02-11 07:09] LABS: BASOPHILS % 0.5 % (0.0-2.0); EOSINOPHILS % 2.3 % (0.0-5.0); HEMATOCRIT. 24.9 % (36.0-48.0); HEMOGLOBIN. 8.3 g/dL (12.0-16.0); LYMPHOCYTES % 10.8 % (20.0-50.0); MEAN CORPUSCULAR HEMOGLOBIN 29.8 pg (28.0-32.0); MEAN CORPUSCULAR VOLUME 89.2 fL (81.0-99.0); MEAN PLATELET VOLUME 8.3 fl (7.4-10.4); MONOCYTES % 3.7 % (2.0-8.0); NEUTROPHILS % 82.7 % (40.0-76.0); PLATELET 729 x1000/uL (130-400); RED BLOOD CELL COUNT 2.79 mill/uL (4.2-5.4); RED CELL DISTRIBUTION WIDTH 16.4 % (11.6-14.6)
[2019-02-11 08:06] VITALS: BP 113/64
[2019-02-11 08:10] LABS: CHLORIDE 105 mEq/L (98-107)
[2019-02-11] MEDS: POTASSIUM CHLORIDE 10MEQ TABLET SR PO SCH (08:24)
[2019-02-11] MEDS: FUROSEMIDE 40MG TABLET PO SCH (08:24)
[2019-02-11] MEDS: FAMOTIDINE 20MG TABLET PO SCH ×2 (08:24→17:24)
[2019-02-11] MEDS: LEVETIRACETAM 500MG TABLET PO SCH ×2 (08:24→22:16)
[2019-02-11] MEDS: ASPIRIN 81MG EC TABLET PO SCH (08:24)
[2019-02-11] MEDS: FOLIC ACID 1MG TABLET PO SCH (08:24)
[2019-02-11] MEDS: CARVEDILOL 3.125 MG TABLET PO SCH ×2 (08:25→21:00)
[2019-02-11] MEDS: ENOXAPARIN 40MG/0.4ML SYR SUBCUT SCH ×2 (08:26→22:20)
[2019-02-11] MEDS: HYDROCODONE/ACETAMINOPHEN 5/325MG TABLET PO PRN (09:33)
[2019-02-11] MEDS ORDERED: DIATR MEGLU/DIATRIZOATE SOLN 30ML PO NR (16:00)
[2019-02-11 20:00] VITALS: BP 112/59
[2019-02-11] MEDS: QUETIAPINE FUMARATE 25MG TABLET PO SCH (22:17)
[2019-02-12] MEDS: IPRATROPIUM/ALBUTEROL 0.5-3(2.5)MG/3ML NEB HHN SCH ×3 (00:10→21:22)
[2019-02-12] MEDS: DEXT 5%/0.45% NACL 1000ML 1,000 ML IV SCH ×2 (01:39→20:57)
[2019-02-12 02:33] LABS: UCG SCREEN NEGATIVE
[2019-02-12] MEDS ORDERED: DIATR MEGLU/DIATRIZOATE SOLN 30ML PO SCH (02:45)
[2019-02-12] MEDS ORDERED: IOHEXOL-300 100 ML BOTTLE ONE (05:41)
[2019-02-12] MEDS: PIPERACILLIN/TAZOBACTAM 3.375 G in DEXT 5% WATER 100 ML IV SCH ×3 (05:54→22:49)
[2019-02-12] MEDS: DIPHENHYDRAMINE 50MG/ML VIAL IV PRN ×4 (05:54→21:52)
[2019-02-12] MEDS: CLINDAMYCIN 300 MG in DEXTROSE 5% WATER 50 ML IV SCH (06:57)
[2019-02-12 08:00] VITALS: BP 114/70
[2019-02-12] MEDS: ENOXAPARIN 40MG/0.4ML SYR SUBCUT SCH (08:59)
[2019-02-12] MEDS: ACETAMINOPHEN 325MG TABLET PO PRN (09:02)
[2019-02-12] MEDS: FUROSEMIDE 40MG TABLET PO SCH (09:02)
[2019-02-12] MEDS: LEVETIRACETAM 500MG TABLET PO SCH ×2 (09:02→20:56)
[2019-02-12] MEDS: CARVEDILOL 3.125 MG TABLET PO SCH ×2 (09:03→20:57)
[2019-02-12] MEDS: ASPIRIN 81MG EC TABLET PO SCH (09:04)
[2019-02-12] MEDS: FOLIC ACID 1MG TABLET PO SCH (09:04)
[2019-02-12] MEDS: FAMOTIDINE 20MG TABLET PO SCH ×2 (09:04→17:19)
[2019-02-12] MEDS: POTASSIUM CHLORIDE 10MEQ TABLET SR PO SCH (09:04)
[2019-02-12] MEDS ORDERED: CEFEPIME 1,000 MG in DEXTROSE 5% WATER 50 ML IV SCH (13:00)
[2019-02-12] MEDS: TRAMADOL 50MG TABLET PO PRN (14:25)
[2019-02-12 20:00] VITALS: BP 90/48
[2019-02-12] MEDS: QUETIAPINE FUMARATE 25MG TABLET PO SCH (20:56)
[2019-02-12] MEDS: ENOXAPARIN 60MG/0.6ML SYR SUBCUT SCH (20:56)
[2019-02-12 22:49] VITALS: BP 104/65
[2019-02-13] MEDS: ACETAMINOPHEN 325MG TABLET PO PRN (00:44)
[2019-02-13] MEDS: IPRATROPIUM/ALBUTEROL 0.5-3(2.5)MG/3ML NEB HHN SCH ×5 (02:23→21:25)
[2019-02-13] MEDS: PIPERACILLIN/TAZOBACTAM 3.375 G in DEXT 5% WATER 100 ML IV SCH ×4 (04:56→23:04)
[2019-02-13] MEDS: DIPHENHYDRAMINE 50MG/ML VIAL IV PRN ×3 (05:42→17:37)
[2019-02-13 07:55] VITALS: BP 105/56
[2019-02-13 08:02] LABS: CHLORIDE 106 mEq/L (98-107)
[2019-02-13 08:05] LABS: BASOPHILS % 0.7 % (0.0-2.0); EOSINOPHILS % 3.2 % (0.0-5.0); HEMATOCRIT. 21.9 % (36.0-48.0); HEMOGLOBIN. 7.3 g/dL (12.0-16.0); MEAN CORPUSCULAR HEMOGLOBIN 29.7 pg (28.0-32.0); MEAN CORPUSCULAR VOLUME 88.7 fL (81.0-99.0); MONOCYTES % 5.4 % (2.0-8.0); NEUTROPHILS % 71.7 % (40.0-76.0); PLATELET 570 x1000/uL (130-400); RED BLOOD CELL COUNT 2.47 mill/uL (4.2-5.4); RED CELL DISTRIBUTION WIDTH 16.2 % (11.6-14.6)
[2019-02-13] MEDS: ASPIRIN 81MG EC TABLET PO SCH (08:16)
[2019-02-13] MEDS: FOLIC ACID 1MG TABLET PO SCH (08:16)
[2019-02-13] MEDS: CARVEDILOL 3.125 MG TABLET PO SCH ×2 (08:16→22:00)
[2019-02-13] MEDS: LEVETIRACETAM 500MG TABLET PO SCH ×2 (08:16→20:16)
[2019-02-13] MEDS: FAMOTIDINE 20MG TABLET PO SCH ×2 (08:17→16:38)
[2019-02-13] MEDS: FUROSEMIDE 40MG TABLET PO SCH (08:17)
[2019-02-13] MEDS: POTASSIUM CHLORIDE 10MEQ TABLET SR PO SCH (08:17)
[2019-02-13] MEDS: ENOXAPARIN 60MG/0.6ML SYR SUBCUT SCH ×2 (08:18→20:18)
[2019-02-13 08:27] VITALS: BP 105/56
[2019-02-13] MEDS: TRAMADOL 50MG TABLET PO PRN ×2 (09:01→20:17)
[2019-02-13] MEDS ORDERED: HYDROCODONE/ACETAMINOPHEN 5/325MG TABLET PO PRN (15:45)
[2019-02-13] MEDS: DEXT 5%/0.45% NACL 1000ML 1,000 ML IV SCH (16:41)
[2019-02-13 20:00] VITALS: BP 102/55
[2019-02-13] MEDS: QUETIAPINE FUMARATE 25MG TABLET PO SCH (20:17)
[2019-02-14] MEDS: DIPHENHYDRAMINE 50MG/ML VIAL IV PRN ×4 (00:26→19:05)
[2019-02-14] MEDS: IPRATROPIUM/ALBUTEROL 0.5-3(2.5)MG/3ML NEB HHN PRN (04:57)
[2019-02-14] MEDS: PIPERACILLIN/TAZOBACTAM 3.375 G in DEXT 5% WATER 100 ML IV SCH ×4 (05:43→23:15)
[2019-02-14 08:16] VITALS: BP 98/58
[2019-02-14] MEDS: CARVEDILOL 3.125 MG TABLET PO SCH ×2 (09:00→20:33)
[2019-02-14] MEDS: TRAMADOL 50MG TABLET PO PRN (09:13)
[2019-02-14] MEDS: FUROSEMIDE 40MG TABLET PO SCH (10:33)
[2019-02-14] MEDS: FAMOTIDINE 20MG TABLET PO SCH ×2 (10:33→17:56)
[2019-02-14] MEDS: LEVETIRACETAM 500MG TABLET PO SCH ×2 (10:33→20:32)
[2019-02-14] MEDS: FOLIC ACID 1MG TABLET PO SCH (10:33)
[2019-02-14] MEDS: ASPIRIN 81MG EC TABLET PO SCH (10:34)
[2019-02-14] MEDS: ENOXAPARIN 60MG/0.6ML SYR SUBCUT SCH ×2 (10:35→20:33)
[2019-02-14] MEDS: POTASSIUM CHLORIDE 10MEQ TABLET SR PO SCH (12:46)
[2019-02-14] MEDS: IPRATROPIUM/ALBUTEROL 0.5-3(2.5)MG/3ML NEB HHN SCH ×3 (13:36→20:30)
[2019-02-14] MEDS: DEXT 5%/0.45% NACL 1000ML 1,000 ML IV SCH (17:57)
[2019-02-14 20:00] VITALS: BP 108/61
[2019-02-14] MEDS: QUETIAPINE FUMARATE 25MG TABLET PO SCH (20:31)
[2019-02-14] MEDS: HYDROCODONE/ACETAMINOPHEN 5/325MG TABLET PO PRN (20:32)
[2019-02-15] VITALS (7 sets, daily range): BP systolic 94–109; BP diastolic 54–70
[2019-02-15] MEDS: DIPHENHYDRAMINE 50MG/ML VIAL IV PRN ×3 (00:43→13:15)
[2019-02-15] MEDS: PIPERACILLIN/TAZOBACTAM 3.375 G in DEXT 5% WATER 100 ML IV SCH ×3 (04:43→17:15)
[2019-02-15] MEDS: IPRATROPIUM/ALBUTEROL 0.5-3(2.5)MG/3ML NEB HHN SCH ×3 (07:21→21:30)
[2019-02-15 08:40] LABS: BASOPHILS % 1.5 % (0.0-2.0); EOSINOPHILS % 5.2 % (0.0-5.0); HEMOGLOBIN. 7.1 g/dL (12.0-16.0); LYMPHOCYTES % 20.7 % (20.0-50.0); MEAN CORPUSCULAR HEMOGLOBIN 30.3 pg (28.0-32.0); MEAN CORPUSCULAR VOLUME 89.1 fL (81.0-99.0); MEAN PLATELET VOLUME 8.8 fl (7.4-10.4); MONOCYTES % 7.9 % (2.0-8.0); NEUTROPHILS % 64.7 % (40.0-76.0); PLATELET 602 x1000/uL (130-400); RED BLOOD CELL COUNT 2.35 mill/uL (4.2-5.4); RED CELL DISTRIBUTION WIDTH 15.9 % (11.6-14.6)
[2019-02-15 08:46] LABS: HEMATOCRIT. 20.9 % (36.0-48.0)
[2019-02-15 08:49] LABS: CHLORIDE 105 mEq/L (98-107)
[2019-02-15] MEDS: CARVEDILOL 3.125 MG TABLET PO SCH ×2 (09:00→21:00)
[2019-02-15] MEDS: FOLIC ACID 1MG TABLET PO SCH (09:17)
[2019-02-15] MEDS: LEVETIRACETAM 500MG TABLET PO SCH (09:17)
[2019-02-15] MEDS: POTASSIUM CHLORIDE 10MEQ TABLET SR PO SCH (09:17)
[2019-02-15] MEDS: FUROSEMIDE 40MG TABLET PO SCH (09:17)
[2019-02-15] MEDS: FAMOTIDINE 20MG TABLET PO SCH ×2 (09:18→17:15)
[2019-02-15] MEDS: ENOXAPARIN 60MG/0.6ML SYR SUBCUT SCH (09:19)
[2019-02-15] MEDS: HYDROCODONE/ACETAMINOPHEN 5/325MG TABLET PO PRN ×3 (09:19→23:28)
[2019-02-15] MEDS: DEXT 5%/0.45% NACL 1000ML 1,000 ML IV SCH (09:22)
[2019-02-15] MEDS ORDERED: ACETAMINOPHEN 325MG TABLET PO NR (16:15)
[2019-02-15] MEDS ORDERED: DIPHENHYDRAMINE 50MG/ML VIAL IV NR (16:15)
[2019-02-16] MEDS: LEVETIRACETAM 500MG TABLET PO SCH ×3 (00:50→21:12)
[2019-02-16] MEDS: QUETIAPINE FUMARATE 25MG TABLET PO SCH ×2 (00:51→21:13)
[2019-02-16] MEDS: ACETAMINOPHEN 325MG TABLET PO PRN (00:51)
[2019-02-16] MEDS: ENOXAPARIN 60MG/0.6ML SYR SUBCUT SCH ×3 (00:52→21:14)
[2019-02-16] MEDS: DIPHENHYDRAMINE 50MG/ML VIAL IV PRN ×4 (00:54→18:28)
[2019-02-16] MEDS: PIPERACILLIN/TAZOBACTAM 3.375 G in DEXT 5% WATER 100 ML IV SCH ×5 (00:58→23:30)
[2019-02-16] MEDS: IPRATROPIUM/ALBUTEROL 0.5-3(2.5)MG/3ML NEB HHN SCH ×5 (02:38→20:26)
[2019-02-16 03:02] LABS: CHLORIDE 102 mEq/L (98-107)
[2019-02-16 03:08] LABS: HEMATOCRIT. 21.2 % (36.0-48.0); MEAN CORPUSCULAR HEMOGLOBIN 29.7 pg (28.0-32.0); MEAN CORPUSCULAR VOLUME 89.4 fL (81.0-99.0); MEAN PLATELET VOLUME 8.6 fl (7.4-10.4); PLATELET 534 x1000/uL (130-400); RED BLOOD CELL COUNT 2.37 mill/uL (4.2-5.4); RED CELL DISTRIBUTION WIDTH 15.4 % (11.6-14.6)
[2019-02-16 04:27] LABS: CLARITY URINE CLEAR (CLEAR); COLOR URINE ORANGE (YELLOW); KETONES URINE TRACE (NEGATIVE); LEUKOCYTE ESTERASE URINE TRACE (NEGATIVE); NITRITE URINE POSITIVE (NEGATIVE); OCCULT BLOOD URINE NEGATIVE (NEGATIVE); PROTEIN URINE NEGATIVE (NEGATIVE); SPECIFIC GRAVITY URINE 1.019 (1.005-1.030); UROBILINOGEN URINE 0.2 E.U./dL (0.2-1.0)
[2019-02-16 05:41] LABS: PLATELET ESTIMATE INCREASED
[2019-02-16] MEDS: DEXT 5%/0.45% NACL 1000ML 1,000 ML IV SCH (05:58)
[2019-02-16] MEDS: FAMOTIDINE 20MG TABLET PO SCH ×2 (08:18→16:07)
[2019-02-16] MEDS: FUROSEMIDE 40MG TABLET PO SCH (08:18)
[2019-02-16] MEDS: FOLIC ACID 1MG TABLET PO SCH (08:18)
[2019-02-16] MEDS: POTASSIUM CHLORIDE 10MEQ TABLET SR PO SCH (08:18)
[2019-02-16] MEDS ORDERED: POTASSIUM CHLORIDE 20MEQ TABLET SR PO SCH (09:00)
[2019-02-16] MEDS: CARVEDILOL 3.125 MG TABLET PO SCH ×2 (09:00→21:00)
[2019-02-16] MEDS: HYDROCODONE/ACETAMINOPHEN 5/325MG TABLET PO PRN ×2 (09:57→18:56)
[2019-02-16 20:00] VITALS: BP 103/81
[2019-02-17] MEDS: DEXT 5%/0.45% NACL 1000ML 1,000 ML IV SCH ×2 (00:17→23:02)
[2019-02-17] MEDS: DIPHENHYDRAMINE 50MG/ML VIAL IV PRN ×4 (02:34→20:50)
[2019-02-17] MEDS: IPRATROPIUM/ALBUTEROL 0.5-3(2.5)MG/3ML NEB HHN SCH ×4 (02:42→21:09)
[2019-02-17] MEDS: PIPERACILLIN/TAZOBACTAM 3.375 G in DEXT 5% WATER 100 ML IV SCH ×5 (05:30→23:32)
[2019-02-17 07:50] VITALS: BP 98/62
[2019-02-17] MEDS: POTASSIUM CHLORIDE 10MEQ TABLET SR PO SCH (08:21)
[2019-02-17] MEDS: ENOXAPARIN 60MG/0.6ML SYR SUBCUT SCH ×2 (08:21→22:17)
[2019-02-17] MEDS: LEVETIRACETAM 500MG TABLET PO SCH ×2 (08:21→22:16)
[2019-02-17] MEDS: FAMOTIDINE 20MG TABLET PO SCH ×2 (08:21→16:05)
[2019-02-17] MEDS: FOLIC ACID 1MG TABLET PO SCH (08:21)
[2019-02-17] MEDS: FUROSEMIDE 40MG TABLET PO SCH (08:21)
[2019-02-17] MEDS: CARVEDILOL 3.125 MG TABLET PO SCH ×2 (09:00→21:00)
[2019-02-17 10:05] LABS: BASOPHILS % 0.9 % (0.0-2.0); EOSINOPHILS % 6.8 % (0.0-5.0); HEMATOCRIT. 24.9 % (36.0-48.0); HEMOGLOBIN. 8.4 g/dL (12.0-16.0); LYMPHOCYTES % 33.3 % (20.0-50.0); MEAN CORPUSCULAR HEMOGLOBIN 30.4 pg (28.0-32.0); MEAN CORPUSCULAR VOLUME 89.9 fL (81.0-99.0); MEAN PLATELET VOLUME 7.9 fl (7.4-10.4); MONOCYTES % 7.1 % (2.0-8.0); NEUTROPHILS % 51.9 % (40.0-76.0); PLATELET 672 x1000/uL (130-400); RED BLOOD CELL COUNT 2.77 mill/uL (4.2-5.4); RED CELL DISTRIBUTION WIDTH 16.1 % (11.6-14.6)
[2019-02-17 10:11] LABS: CHLORIDE 106 mEq/L (98-107)
[2019-02-17 10:21] LABS: CREATINE KINASE 10 IU/L (26-192)
[2019-02-17] MEDS: HYDROCODONE/ACETAMINOPHEN 5/325MG TABLET PO PRN ×2 (15:06→22:37)
[2019-02-17 20:00] VITALS: BP 100/58
[2019-02-17] MEDS: QUETIAPINE FUMARATE 25MG TABLET PO SCH (22:16)
[2019-02-18] MEDS: IPRATROPIUM/ALBUTEROL 0.5-3(2.5)MG/3ML NEB HHN SCH ×4 (00:47→21:33)
[2019-02-18] MEDS: PIPERACILLIN/TAZOBACTAM 3.375 G in DEXT 5% WATER 100 ML IV SCH ×4 (04:59→22:40)
[2019-02-18] MEDS: DIPHENHYDRAMINE 50MG/ML VIAL IV PRN ×2 (06:39→12:42)
[2019-02-18 08:00] VITALS: BP 106/69
[2019-02-18] MEDS: LEVETIRACETAM 500MG TABLET PO SCH ×2 (08:55→22:40)
[2019-02-18] MEDS: FAMOTIDINE 20MG TABLET PO SCH ×2 (08:55→17:15)
[2019-02-18] MEDS: HYDROCODONE/ACETAMINOPHEN 5/325MG TABLET PO PRN ×3 (08:55→21:41)
[2019-02-18] MEDS: POTASSIUM CHLORIDE 10MEQ TABLET SR PO SCH (08:55)
[2019-02-18] MEDS: FOLIC ACID 1MG TABLET PO SCH (08:55)
[2019-02-18] MEDS: FUROSEMIDE 40MG TABLET PO SCH (08:55)
[2019-02-18] MEDS: ENOXAPARIN 60MG/0.6ML SYR SUBCUT SCH (08:56)
[2019-02-18] MEDS: CARVEDILOL 3.125 MG TABLET PO SCH ×2 (08:56→21:00)
[2019-02-18] MEDS: DEXT 5%/0.45% NACL 1000ML 1,000 ML IV SCH (17:17)
[2019-02-18 20:00] VITALS: BP 109/70
[2019-02-18] MEDS: TRAMADOL 50MG TABLET PO PRN (20:38)
[2019-02-18] MEDS: QUETIAPINE FUMARATE 25MG TABLET PO SCH (22:40)
[2019-02-19] MEDS: DIPHENHYDRAMINE 50MG/ML VIAL IV PRN ×4 (02:47→19:51)
[2019-02-19] MEDS: DEXT 5%/0.45% NACL 1000ML 1,000 ML IV SCH (02:47)
[2019-02-19] MEDS: IPRATROPIUM/ALBUTEROL 0.5-3(2.5)MG/3ML NEB HHN SCH ×4 (04:02→21:18)
[2019-02-19] MEDS: PIPERACILLIN/TAZOBACTAM 3.375 G in DEXT 5% WATER 100 ML IV SCH ×4 (05:02→23:12)
[2019-02-19 06:49] LABS: INR 1.1; PROTHROMBIN TIME 10.9 sec (9.6-11.0)
[2019-02-19 08:00] VITALS: BP 108/68
[2019-02-19] MEDS: CARVEDILOL 3.125 MG TABLET PO SCH ×2 (09:00→21:00)
[2019-02-19] MEDS: LEVETIRACETAM 500MG TABLET PO SCH ×2 (09:03→20:57)
[2019-02-19] MEDS: FOLIC ACID 1MG TABLET PO SCH (09:04)
[2019-02-19] MEDS: POTASSIUM CHLORIDE 10MEQ TABLET SR PO SCH (09:04)
[2019-02-19] MEDS: FAMOTIDINE 20MG TABLET PO SCH ×2 (09:04→16:24)
[2019-02-19] MEDS: FUROSEMIDE 40MG TABLET PO SCH (09:04)
[2019-02-19] MEDS: HYDROCODONE/ACETAMINOPHEN 5/325MG TABLET PO PRN ×2 (09:09→16:24)
[2019-02-19 20:00] VITALS: BP 107/69
[2019-02-19] MEDS: QUETIAPINE FUMARATE 25MG TABLET PO SCH (20:57)
[2019-02-20] MEDS: IPRATROPIUM/ALBUTEROL 0.5-3(2.5)MG/3ML NEB HHN SCH ×4 (01:24→21:26)
[2019-02-20] MEDS: HYDROCODONE/ACETAMINOPHEN 5/325MG TABLET PO PRN ×2 (01:42→14:54)
[2019-02-20] MEDS: DIPHENHYDRAMINE 50MG/ML VIAL IV PRN ×3 (03:14→20:28)
[2019-02-20] MEDS ORDERED: FENTANYL CITRATE/PF 50MCG/ML 2ML VIAL ONE ×2 (06:36→07:26)
[2019-02-20] MEDS ORDERED: MIDAZOLAM HCL 2 MG/2 ML VIAL ONE ×2 (06:36→07:59)
[2019-02-20] MEDS ORDERED: DIPHENHYDRAMINE 50MG/ML VIAL ONE (06:36)
[2019-02-20] MEDS ORDERED: CEFAZOLIN SODIUM 1000MG/VIAL ONE (06:38)
[2019-02-20] MEDS ORDERED: SODIUM CHLORIDE 0.9% 10ML VIAL ONE (06:38)
[2019-02-20] MEDS ORDERED: PROPOFOL 200MG/20ML VIAL IV ONE (06:40)
[2019-02-20] MEDS ORDERED: LIDOCAINE HCL/PF 1% 10 MG/ML 5ML VIAL ONE (06:40)
[2019-02-20] MEDS ORDERED: BUPIVACAINE HCL 0.5% (5MG/ML) 50ML ONE (07:12)
[2019-02-20] MEDS ORDERED: BACITRACIN 50,000 UNITS/VIAL ONE (08:16)
[2019-02-20] MEDS ORDERED: BACITRACIN 15GM TUBE TOP ONE (08:16)
[2019-02-20] MEDS ORDERED: HYDROMORPHONE HCL/PF 2MG/ML CPJ IV PRN (09:00)
[2019-02-20] MEDS: CARVEDILOL 3.125 MG TABLET PO SCH ×2 (09:00→21:00)
[2019-02-20] MEDS: LEVETIRACETAM 500MG TABLET PO SCH ×2 (09:49→20:28)
[2019-02-20] MEDS: FAMOTIDINE 20MG TABLET PO SCH ×2 (09:50→16:35)
[2019-02-20] MEDS: POTASSIUM CHLORIDE 10MEQ TABLET SR PO SCH (09:50)
[2019-02-20] MEDS: FUROSEMIDE 40MG TABLET PO SCH (09:50)
[2019-02-20] MEDS: FOLIC ACID 1MG TABLET PO SCH (09:50)
[2019-02-20] MEDS: TRAMADOL 50MG TABLET PO PRN (16:36)
[2019-02-20] MEDS: PIPERACILLIN/TAZOBACTAM 3.375 G in DEXT 5% WATER 100 ML IV SCH ×2 (16:36→20:27)
[2019-02-20] MEDS: HYDROCODONE/ACETAMINOPHEN 10/325MG TABLET PO PRN (19:35)
[2019-02-20 20:00] VITALS: BP 108/51
[2019-02-20] MEDS: QUETIAPINE FUMARATE 25MG TABLET PO SCH (20:28)
[2019-02-21] MEDS: IPRATROPIUM/ALBUTEROL 0.5-3(2.5)MG/3ML NEB HHN SCH ×4 (01:41→20:01)
[2019-02-21] MEDS: PIPERACILLIN/TAZOBACTAM 3.375 G in DEXT 5% WATER 100 ML IV SCH ×4 (04:01→18:07)
[2019-02-21] MEDS: HYDROCODONE/ACETAMINOPHEN 10/325MG TABLET PO PRN ×2 (04:10→16:43)
[2019-02-21] MEDS: DIPHENHYDRAMINE 50MG/ML VIAL IV PRN ×2 (04:41→10:53)
[2019-02-21] MEDS ORDERED: SODIUM BICARBONATE 4% (2.4MEQ) 5ML VIAL IV ONE (07:33)
[2019-02-21] MEDS ORDERED: IOHEXOL-300 50 ML BOTTLE IV ONE (07:33)
[2019-02-21] MEDS ORDERED: LIDOCAINE HCL 1% 20ML VIAL (Pyxis) INJ ONE (07:33)
[2019-02-21 08:20] VITALS: BP 104/63
[2019-02-21] MEDS: TRAMADOL 50MG TABLET PO PRN (10:05)
[2019-02-21] MEDS: FUROSEMIDE 40MG TABLET PO SCH (10:38)
[2019-02-21] MEDS: POTASSIUM CHLORIDE 10MEQ TABLET SR PO SCH (10:38)
[2019-02-21] MEDS: FOLIC ACID 1MG TABLET PO SCH (10:38)
[2019-02-21] MEDS: FAMOTIDINE 20MG TABLET PO SCH ×2 (10:38→16:41)
[2019-02-21] MEDS: LEVETIRACETAM 500MG TABLET PO SCH ×2 (10:38→20:38)
[2019-02-21] MEDS: CARVEDILOL 3.125 MG TABLET PO SCH ×2 (10:41→20:44)
[2019-02-21 15:44] LABS: BASOPHILS % 1.1 % (0.0-2.0); EOSINOPHILS % 9.3 % (0.0-5.0); HEMATOCRIT. 22.6 % (36.0-48.0); HEMOGLOBIN. 7.7 g/dL (12.0-16.0); LYMPHOCYTES % 34.7 % (20.0-50.0); MEAN CORPUSCULAR HEMOGLOBIN 30.7 pg (28.0-32.0); MEAN CORPUSCULAR VOLUME 89.9 fL (81.0-99.0); MEAN PLATELET VOLUME 7.5 fl (7.4-10.4); NEUTROPHILS % 46.9 % (40.0-76.0); PLATELET 688 x1000/uL (130-400); RED BLOOD CELL COUNT 2.51 mill/uL (4.2-5.4); RED CELL DISTRIBUTION WIDTH 15.5 % (11.6-14.6)
[2019-02-21 15:48] LABS: CHLORIDE 105 mEq/L (98-107)
[2019-02-21 16:40] VITALS: BP 109/64
[2019-02-21 16:43] VITALS: BP 109/64
[2019-02-21] MEDS: QUETIAPINE FUMARATE 25MG TABLET PO SCH (20:39)
== END 2019-02-21 21:35 | disposition home health service (06) | DRG 56 ==
PROVIDERS: ADMIT Psychiatry & Neurology Neurology; ATTEND Internal Medicine
DX: I69.354 Hemiplegia and hemiparesis following cerebral infarction affecting left non-dominant side (principal); I63.9 Cerebral infarction, unspecified; A41.9 Sepsis, unspecified organism; I50.23 Acute on chronic systolic (congestive) heart failure; J18.9 Pneumonia, unspecified organism; E87.2 Acidosis; G93.40 Encephalopathy, unspecified; I24.9 Acute ischemic heart disease, unspecified; D57.1 Sickle-cell disease without crisis; E87.6 Hypokalemia; I11.0 Hypertensive heart disease with heart failure; I25.10 Atherosclerotic heart disease of native coronary artery without angina pectoris; I27.20 Pulmonary hypertension, unspecified; I25.2 Old myocardial infarction
CPT/HCPCS: 36415; 36569; 36573; 71045; 74178; 75822; 75825; 80048; 80076; 81003; 81025; 82270; 82550; 82607; 82962; 83540; 83550; 84484; 85044; 86078; 86850; 86900; 86920; 87070; 87077; 87186; 88300; 92523; 92610; 93005; 93306; 94618; 94640; 97110; 97112; 97116; 97163; 97167; 97530; 97535; A4565; C1725; J0690; J0692; J1200; J1650; J2250; J2270; J2543; J2704; J3010; J3490; J7060; J7620; P9016; Q9963; Q9967

== ENCOUNTER 2019-06-13 09:04 | Emergency (ER) | payer BC, MEDICAID ==
[~2019-06-13] VITALS: Ht 172.7 cm; Wt 75.0 kg
[2019-06-13] MEDS ORDERED: MORPHINE SULFATE 4 MG/ML CPJ (NOT FOR IM USE) IV STA (11:04)
[2019-06-13] MEDS ORDERED: KETOROLAC 30MG/ML VIAL IV STA (11:04)
[2019-06-13] MEDS ORDERED: SODIUM CHLORIDE 0.9% 1,000 ML IV ONE (11:04)
[2019-06-13] MEDS ORDERED: ONDANSETRON HCL 4MG/2ML INJ IV STA (11:04)
[2019-06-13 12:36] LABS: BASOPHILS % 1.4 % (0.0-2.0); CHLORIDE 102 mEq/L (98-107); EOSINOPHILS % 8.7 % (0.0-5.0); HEMATOCRIT. 27.6 % (36.0-48.0); HEMOGLOBIN. 9.4 g/dL (12.0-16.0); LYMPHOCYTES % 41.5 % (20.0-50.0); MEAN CORPUSCULAR HEMOGLOBIN 30.9 pg (28.0-32.0); MEAN CORPUSCULAR VOLUME 90.9 fL (81.0-99.0); MEAN PLATELET VOLUME 8.1 fl (7.4-10.4); MONOCYTES % 8.3 % (2.0-8.0); NEUTROPHILS % 40.1 % (40.0-76.0); PLATELET 516 x1000/uL (130-400); RED BLOOD CELL COUNT 3.04 mill/uL (4.2-5.4); RED CELL DISTRIBUTION WIDTH 16.8 % (11.6-14.6)
[2019-06-13] MEDS ORDERED: DIPHENHYDRAMINE 50MG/ML VIAL IV ONE (12:45)
[2019-06-13 12:48] LABS: HCG SCREEN NEGATIVE
[2019-06-13 14:15] VITALS: BP 112/72
[2019-06-13] MEDS ORDERED: HYDROCODONE/ACETAMINOPHEN 5/325MG TABLET PO ONE (14:15)
== END 2019-06-13 14:55 | disposition home or self-care (01) ==
LOC: ER 09:04
DX: S16.1XXA Strain of muscle, fascia and tendon at neck level, initial encounter (principal); D57.00 Hb-SS disease with crisis, unspecified; J45.909 Unspecified asthma, uncomplicated; G40.909 Epilepsy, unspecified, not intractable, without status epilepticus; Z86.73 Personal history of transient ischemic attack (TIA), and cerebral infarction without residual deficits; Z86.711 Personal history of pulmonary embolism; Z79.01 Long term (current) use of anticoagulants; Z88.3 Allergy status to other anti-infective agents; Z90.49 Acquired absence of other specified parts of digestive tract; Z90.89 Acquired absence of other organs; Z98.890 Other specified postprocedural states; X58.XXXA Exposure to other specified factors, initial encounter; Y93.89 Activity, other specified; Y92.018 Other place in single-family (private) house as the place of occurrence of the external cause
CPT/HCPCS: 36415; 80053; 84703; 85025; 85044; 93005; 96374; 96375; 99284; J1200; J1885; J2270; J2405; J7030; Z7610